=== PATIENT | male | born 1950 | race Asian ===

== ENCOUNTER 2021-02-04 22:46 | Observation (INO) | payer OTHER ==
[~2021-02-04] VITALS: Ht 172.7 cm; Wt 81.8 kg
[~2021-02-04 22:46] MED LIST: AMLO2.5T PO; BENADRYL ITC EX; CHOL100034 PO; DIVA250T PO; FLUTMIS6 INH; FURO40TA93 PO; HYDR25TA60 PO; IPRAAER INH; LACTSYP31 PO; MAG-OXIDE200 MG PO; NICOTINE T14 MG/241 TOP; POTA10CA3 PO; QUET25TA2 PO; RISP1TAB PO; RISP50IN IM; TRAZ50TA36 PO
[2021-02-04 22:50] VITALS: BP 139/97; TEMP 98.1
[2021-02-04 23:00] VITALS: BP 140/96
[2021-02-04 23:12] LABS: PLATELET COUNT 119 K/uL (142-355)
[2021-02-04 23:24] LABS: POTASSIUM 3.4 mmol/L (3.6-5.2)
[2021-02-04 23:50] VITALS: BP 153/94
[2021-02-05] VITALS (9 sets, daily range): BP systolic 72–156; BP diastolic 48–91; TEMP 97.6–98.8; Ht 172.7 cm; Wt 81.8 kg
--- NOTE | 2021-02-05 01:02 | NUR ---
PT / 62 Y/O MALE / FULL CODE / NKDA / ARRIVED AT THIS TIME FROM THE ED VIA STRETCHER WITH SAVANAH OLIVO, UNA TO ROOM [address] HILLMAN'S SERVICES WITH DX: OF SVT, SCHIZOPHRENIA, AGITATION AND PSEUDOBULBAR EFFECT. PT WAS ORIGIALLY A 1013 AND WAS GOING TO BE ADMITTED TO THE BHU AFTER BEING MEDICALLY CLEARED. PT WAS IN SVT AND ED CONVERTED PT WITH ADENOSINE. PT IS NON-VERBAL BUT ABLE TO TRANSFER SELF TO [facility] B[facility]. TELEMETRY AND 20 G TO RIGHT FOREARM AND THAT HAS NS @ 200 ML/HR. UNABLE TO OBTAIN HOME MEDICATIONS AT THIS TIME DUE TO PT'S COGNITIVE DEFICITS. PT SHOWS NO S/S OF ACUTE DISTRESS UPON ADMISSION.
--- NOTE | 2021-02-05 05:40 | NUR ---
22G TO LEFT AC INITIATED X'S TWO ATTEMPTS AT THIS TIME.
[2021-02-05 06:19] LABS: POTASSIUM 3.1 mmol/L (3.6-5.2)
--- NOTE | 2021-02-05 06:42 | NUR ---
CRITICAL TROPONIN OF 256.1 REPORTED TO ER PHYSICIAN- DR DON. DR DON WANTS TO WAIT ON EKG. NO NEW ORDERS AT THIS TIME.
[2021-02-05 07:58] LABS: PLATELET COUNT 103 K/uL (142-355)
[2021-02-05 08:14] LABS: PARTIAL THROMBOPLASTIN TIME 26.9 SECONDS (24.5-33.6)
--- NOTE | 2021-02-05 10:09 | NUR ---
02/05/21 HEPARIN DRIP STARTED AT 10/ML/HR-10.59 UNITS/HOUR PER PROTOCOL.CAREGIVER/PCT AT BEDSIDE BEDALARM ON.
--- NOTE | 2021-02-05 11:47 | NUR ---
02/05/21 1145 LYING IN BED HEPARIN DRIP IN PROGRESS AT 10ML/HR/10.59 UNITS/HR TO LT FOREARM IV SITE NO REDNESS OR SWELLING NOTED.SITTER PRESENT AT BEDSIDE.CALL LIGHT WITHIN REACH.CC
--- NOTE | 2021-02-05 12:02 | NUR ---
02/05/21 1200 OUT OF BED PT UNABLE TO URINATE IN URINAL AT THIS TIME.PT BACK TO BED ASSISTED BY SITTER.CC
[2021-02-05] MEDS ORDERED: OXCARBAZEPIN150 MG PO (13:11)
[2021-02-05] MEDS ORDERED: B121000 MC1 PO (13:13)
[2021-02-05] MEDS ORDERED: BUMETANIDE1 MG PO (13:17)
[2021-02-05] MEDS ORDERED: ZIPR20CA PO ×2 (13:19→13:20)
[2021-02-05] MEDS ORDERED: INGREZZA PO (13:22)
[2021-02-05] MEDS ORDERED: POTA20TA4 PO (13:30)
--- NOTE | 2021-02-05 14:35 | NUR ---
Spoke with [facility] where patient is in LTC. They say that he has no family, but has a guardian Leonarda De Paz at the [facility] of [facility] phone: [phone].
[2021-02-05] MEDS ORDERED: BENZ1TAB43 PO (14:41)
--- NOTE | 2021-02-05 14:43 | NUR ---
02/05/21 1350 TECH ASSISTING TO EAT BANANA AND PEACHES STATES GETS CHOKED BUT IS BECAUSE EATING FAST.ASSISTED OUT OF BED TO BEDSIDE COMMODE HASNOT VOIDED AT THIS TIME WILL CONTINUE TO MONITOR. HEPARIN DRIP IN PROGRESS TOLERATING WELL.CC
--- NOTE | 2021-02-05 15:39 | NUR ---
02/05/21 1540 PT BACK TO BED DIDNOT VOID AT THIS TIME.LAB PRESENT IN ROOM TO DRAW PTT.CC
[2021-02-05 16:30] LABS: PARTIAL THROMBOPLASTIN TIME 32.8 SECONDS (24.5-33.6)
--- NOTE | 2021-02-05 17:58 | NUR ---
02/05/21 1542 PTT 32.8 INCREASED 2ML/HR-NEW INFUSION RATE 12.71 UNITS/HR.CC 02/05/21 1710 NOTIFED OF PT NOT VOIDING NEW ORDER TO DO I/O CATH. INCREASE IV FLUIDS TO 150ML/HR/.ALSO SOFT MECH DIET ORDERED DUE TO PT CHOKING ON LARGER PIECES OF FOOD.CC
--- NOTE | 2021-02-05 18:08 | NUR ---
02/05/21 1581 NOTIFED OF DOING I/O ON PATIENT UNABLE TO GET ANY URINE RETURN.PT IS NONDISTENED IN BLADDER AREA.NEW ORDER BOLUS PT NS X 1 LITER.CC
--- NOTE | 2021-02-05 20:05 | NUR ---
PATIENT SITTING ON BEDSIDE COMMODE AT THIS TIME, PT. STATED TO [facility] TECH SITTER "PEE" AND IS REFUSING TO GO BACK TO BED AT THIS TIME. INFORMED TECH TO ALLOW PATIENT TO SIT ON BSC A LITTLE WHILE AND I WILL BE BACK TO CHECK ON THEM. PATIENT IS PUTTING OUT VERY MINIMAL URINE ON 7A TO 7P SHIFT AND HAD A IN AND OUT CATH PERFORMED AND NO URINE WAS OBTAINED, DR. GUARDADO IS AWARE AND A 1 LITER BOLUS OF NS ORDERED AND IS TRANSFUSING WELL AT THIS TIME. AT 2039 PATIENT STANDS UP TO AMBULATE BACK TO BED AND SITS ON THE END OF THE BED REFUSING TO LAY BACK AND TECH REMAINS AT BEDSIDE. PATIENT IS UNABLE TO COMMUNICATE VERBALLY AT ALL WITH ME. HE WILL MUTTER A WORD SUCH "PEE" AND "SHIT" BUT OTHER THAN THOSE I CANT FIGURE OUT ANY OF HIS SPEECH. HE WILL MAKE EYE CONTACT WHEN SPOKEN TO FOR SHORT PEROID BUT DOESNT SEEM TO COMPHRENEND ANYTHING BEING SAID TO HIM. PATIENT DOES HAVE EPS AND HIS ARMS ARMS AND JAW CONSTANTLY MOVE WHEN HE IS AWAKE SOMETIMES WORSE THAN OTHERS AND AT TIMES SEEMS TO BE GETTING MORE AGGRESSIVE AND AT THOSE TIMES I ASK THE STAFF TO STEP BACK AND ALLOW PT. TO CALM DOWN. OVERALL I SPENT APPROXIMATELY OVER ONE HOUR TRYING TO CALM PATIENT AND HELP TECH KEEP HIM CALM AND IN THE BED. HE REFUSED TO TAKE PO MEDS AND BECAME COMBATIVE WHEN TOUCHED. CALLED THE ER PHYSICIAN AROUND 2254 AND ASKED FOR SOME THING IV OR IM TO KEEP THE PATIENT SAFE AND CALM AND DR. PAREDES STATED HE WOULD BE DOWN TO SEE THE PATIENT IN A FEW MINUTES. DR. PAREDES CAME TO EVALUATE PATIENT AT 2327 AND REVIEWED PATIENTS CHART, MEDS AND ALSO VISUALIZED THE PATIENT AND HIS BEHAVIOR AND THEN GAVE ORDERS FOR ATIVAN 1MG IV NOW X 1 DOSE AND GEODON 10MG IM NOW AND Q 6 HOURS. PATIENT RECEIVED THE ATIVAN 1MG SLOW IVP AND THE GEODON 10MG IM, [facility] TECH REMAINS AT THE BEDSIDE AT ALL TIMES AND BED ALARM SET AT ALL TIMES. WILL CONTINUE TO MONITOR.
[2021-02-06] VITALS: BP 140/98; TEMP 98
--- NOTE | 2021-02-06 01:30 | NUR ---
PAtIENT NOW RESTING QUIETLY WITH HIS EYES CLOSED AND IN NO ACUTE DISTRESS AND U TECH REMAINS AT THE BEDSIDE. WILL CONTINUE TO MONITOR.
--- NOTE | 2021-02-06 01:45 | NUR ---
PATIENT WAS COMBATIVE FOR SEVERAL HOURS AND HEPARIN DRIP DID REMAIN INFUSING AST ALL TIMES. HIS BLOOD WAS DRAWN FOR A PTT AT 2145 AND RESULTED OUT AT 2240 DURING THIS TIME PATIENT WAS COMBATIVE AND WOULDNT ALLOW STAFF TO TOUCH HIM. IV SITE STILL INTACT AND HEPARIN REMAINS INFUSING AT THE LAST RATE WHICH WAS 12.71 UNITS/HOUR AND 12ML/HR. CONSULTED PHARMACY PTT RESULTS AND VERIFIED BOLUS DOSE AND INCREASE IN RATE AND ADJUSTED PUMP VERIFIED PER TAIWO AT PHARMD AND HEPARIN GTT PROTOCOL. PATIENT RESTING WITH EYES CLOSED AT THIS TIME. TECH AT BEDSIDE. NEXT PTT DUE AT 0705.
[2021-02-06 04:00] VITALS: BP 139/83; TEMP 98.3
--- NOTE | 2021-02-06 04:00 | NUR ---
PATIENT CONTINUES TO REST QUIETLY WITH EYES CLOSED, RESPIRATIONS EVEN AND UNLABORED AND NO SIGNS OF ACUTE DISTRESS NOTED AT THIS TIME. CALL LIGHT WITHIN REACH AND WILL CONTINUE TO MONITOR.
--- NOTE | 2021-02-06 07:00 | NUR ---
PATIENT AWAKE AND WANTS TO "PEE", ASSISTED HIM TO BEDSIDE COMMODE, BRIEF WAS DRY AND INTACT. PT. VOIDED 1000 MLS OF DARK MARY GRACE COLORED URINE WITHOUT DIFFICULTY. PATIENT IS COOPERATING WITH THE STAFF AND U TECH AND IS ACTUALLY SMILING THIS AM. I ASKED THE PATIENT IF HE FELT BETTER THIS AM AND HE NODDED HIS HEAD YES AND SMILED. U TECH AT THE BEDSIDE. WILL CONTINUE TO MONITOR.
[2021-02-06 08:00] VITALS: BP 152/89; TEMP 98.4
--- NOTE | 2021-02-06 08:31 | NUR ---
PATIENTS PTT THAT WAS DRAWN AT 0650 RESULTED OUT AT 0758 AND THE RESULT IS 52.6 WHICH CALLS FOR NO CHANGE ON THE HEPARIN PROTOCOL. NEXT SCHEDULED PTT IS AT 1250.
[2021-02-06 09:55] LABS: POTASSIUM 3.2 mmol/L (3.6-5.2)
[2021-02-06 10:03] LABS: PLATELET COUNT 94 K/uL (142-355)
--- NOTE | 2021-02-06 12:13 | NUR ---
PATIENT CRYNG AND THRASHING C/O OF CHEST PAIN, REPORTED PATIENT'S CHANGE IN CONDITION TO DR. HILLMAN. RECEIVED NEW ORDERS FOR NITRO 0.4MG SL Q 5 MINUTES X3 TIMES, CARDIACS AND EKG STAT, NOTED AND CARRIED OUT.
--- NOTE | 2021-02-06 12:23 | NUR ---
NITRO 0.4MG SL GIVEN X1 TAB AT THIS TIME.
--- NOTE | 2021-02-06 12:36 | NUR ---
PATIENT CONTINUES TO C/O OF PAIN WITH CRYING AND THRASHING OF HEAD, NITRO 0.4MG X1 TAB ADMINISTERED. DR. HILLMAN AT BEDSIDE. RECEIVED NEW VERBAL ORDERS FOR GI COCKTAIL X1 DOSE STAT, NOTED AND ADMINISTERED AT THIS TIME. LAB AT BEDSIDE OBTAINING BLOOD DRAW FOR NEW ORDERS.
--- NOTE | 2021-02-06 13:05 | NUR ---
CASIMIRO OWENS CALLED FOR AN UPDATE ON PATIENT. SHE ADVISED THE PATIENT WAS AWARDED TO THE STATE AND SHE IS THE GUARDIAN OF THE PATIENT. SHE STATED THE PATIENT'S CONDITION AND ANY MEDICAL INTERVENTIONS AND TREATMENTS MUST BE REPORTED TO HER PRIOR TO DOING SO. IF SHE IS UNAVAILABLE, CONTACT THE SECOND DRY MOLDER [place] APONTE. DR. HILLMAN SPOKE WITH GRACIELA AND PROVIDED AN UPDATE OF PATIENTS CONDITION. CASIMIRO OWENS [phone] [place] APONTE [phone]
--- NOTE | 2021-02-06 13:48 | NUR ---
ONE STEP TRANSFER LINE CALLED TO ADVISE THERE IS NO PCU BED AVAILABLE AT THIS TIME AND WILL CALL BACK ONCE A BED BECOMES AVAILABLE. REPORTED SAME TO PHYSICIAN. DR. HILLMAN INSTRUCTED NURSE TO INFORM CALL CENTER PATIENT WILL BE ADMITTED TO [facility] AND THEN TO PCU. AURELIANO, PROCESSING REP, CALLED DR. TOLEDO TO CONFIRM SAME. AFTER HOLDING WHILE HELP DESK AGENT SPOKE WITH DR. TOLEDO, MS. BEDOYA REPORTED TO COAL AND ASH SUPERVISOR DR. TOLEDO STATED PATIENT WILL BE ADMITTED TO PCU AND TO [facility] AND MUST WAIT TO TRANSFER PATIENT UNTIL A PCU BED IS AVAILABLE. UPDATED DR. HILLMAN OF SAME AND V/O UNDERSTANDING, NO NEW ORDERS RECEIVED AT THIS TIME.
--- NOTE | 2021-02-06 14:56 | NUR ---
CALLED PAOLA TO GIVE REPORT, NURSE VU IS UNAVAIABLE AT THIS TIME BUT WILL RETURN THE CALL WHEN SHE RETURNS FROM MED/SURG.
--- NOTE | 2021-02-06 14:57 | NUR ---
NOTIFIED EMS OF PENDING TRANSFER, ELIESER Holden/ [facility].
--- NOTE | 2021-02-06 15:25 | NUR ---
REPORT GIVEN TO RECEIVING NURSE, UNA WOMACK. RECEIVING NURSE DENIES ANY FURTHER QUESTIONS OR C/O AT THIS TIME.
--- NOTE | 2021-02-06 16:30 | NUR ---
ASSISTED PATIENT WITH TRANSFERRING TO BS WITH ASSISTANCE OF OT AND PCT. PATIENT TOLERATED WELL. PATIENT REQUESTED PRIVACY, REQUEST GRANTED.
[2021-02-11] MEDS ORDERED: [UNRECOGNIZED DRUG - OTHER] PO (08:10)
[2021-02-11] MEDS ORDERED: INGREZZA40 MG PO (08:12)
[2021-02-11] MEDS ORDERED: ASPIRIN/ENTERIC81 MG PO (08:13)
[2021-02-11] MEDS ORDERED: CARV6.25 PO (08:13)
== END 2021-02-06 16:29 | disposition short-term general hospital (02) ==
LOC: ED 22:46 → MED/SURG 02-05 00:04
PROVIDERS: Family Medicine; ADMIT Emergency Medicine; ATTEND Internal Medicine Endocrinology, Diabetes & Metabolism
DX: I21.4 Non-ST elevation (NSTEMI) myocardial infarction (principal); I47.1 Supraventricular tachycardia; F20.89 Other schizophrenia; I10 Essential (primary) hypertension; E87.6 Hypokalemia; F48.2 Pseudobulbar affect; N17.8 Other acute kidney failure
CPT/HCPCS: 36415; 80048; 80053; 81000; 82550; 83735; 84100; 84484; 85027; 85610; 85730; 87635; 93005; 96374; 96375; 99220; 99284; G0378; J0153; J0515; J1644; J2060; J3486; U0003